=== PATIENT | female | born 1970 | race Caucasian/White ===

== ENCOUNTER 2022-06-25 11:42 | Emergency (ER) | payer OTHER ==
[~2022-06-25] VITALS: Ht 154.9 cm; Wt 63.5 kg
[~2022-06-25 11:42] MED LIST: ARIMIDEX PO; NITROFURANTOIN100 M1 PO; PHOSPHASAL TAB1 EACH PO; TOBRADEX EYE DR10 ML OP
[2022-06-25] MEDS ORDERED: ZYRTEC10 M3 PO (12:35)
[2022-06-25] MEDS ORDERED: SINGULAIR4 M1 PO (12:35)
== END 2022-06-25 17:15 | disposition home or self-care (01) ==
LOC: ER 11:42
DX: U07.1 COVID-19 (principal); R53.81 Other malaise; J00 Acute nasopharyngitis [common cold]; Z88.6 Allergy status to analgesic agent; Z88.5 Allergy status to narcotic agent; Z91.013 Allergy to seafood